=== PATIENT | female | born 1980 | race Caucasian/White ===

== ENCOUNTER 2018-03-28 12:53 | Emergency (ER) | payer SELFPAY ==
[2018-03-28] MEDS ORDERED: Lidocaine 2% Viscous Solution 15 ML Cup PO ONE (13:16)
--- NOTE | 2018-03-28 13:57 | EDM.PDOC ---
ED HPI GENERAL MEDICAL PROBLEM - General Chief Complaint: ENT Problem Stated Complaint: DENTAL COMPLAINT Time Seen by Provider: 03/28/18 13:06 Source of Information: Reports: Patient History Limitations: Reports: No Limitations - History of Present Illness INITIAL COMMENTS - FREE TEXT/NARRATIVE: The patient presents with left lower tooth pain. This started yesterday. She has a cracked tooth with roots exposed. She has no fever or chills. She has no nausea or vomiting. Onset: Gradual Duration: Day(s): (Yesterday) Location: Reports: Face (Left lower jaw) Quality: Reports: Sharp Severity: Severe Improves with: Reports: None Worsens with: Reports: None Associated Symptoms: Reports: No Other Symptoms Treatments [employer]: Reports: Other (see below) Other Treatments [employer]IAN: motrin Left Lower Tooth/Teeth Pain Score (Numeric/FACES): 10 - Related Data Allergies Allergy/AdvReac Type Severity Reaction Status Date / Time No Known Allergies Allergy Verified 03/28/18 13:07 Home Meds: Home Meds Gabapentin [Neurontin] 300 mg PO BID #20 capsule 03/28/18 [Rx] Gabapentin [Neurontin] 300 mg PO DAILY 03/28/18 [History] Hydrocodone/Acetaminophen [Hydrocodon-Acetaminophen 5-325] 1 - 2 each PO Q6HR PRN #20 tablet 03/28/18 [Rx] Penicillin V Potassium 500 mg PO Q6HR #40 tab 03/28/18 [Rx] carBAMazepine [Tegretol] 1 tab PO DAILY 03/28/18 [History] Past Medical History HEENT History: Reports: Other (See Below) Other HEENT History: dental issues Psychiatric History: Reports: Anxiety, Depression, Mood Swings, PTSD Social & Family History - Tobacco Use Smoking Status *Q: Current Every Day Smoker Years of Tobacco use: 20 Packs/Tins Daily: 0.5 - Caffeine Use Caffeine Use: Reports: Coffee, Energy Drinks, Soda, Tea - Recreational Drug Use Recreational Drug Use: No ED ROS ENT - Review of Systems Review Of Systems: See Below Constitutional: Reports: No Symptoms HEENT: Reports: Dental Pain Respiratory: Reports: No Symptoms Cardiovascular: Reports: No Symptoms Endocrine: Reports: No Symptoms GI/Abdominal: Reports: No Symptoms : Reports: No Symptoms Musculoskeletal: Reports: No Symptoms Skin: Reports: No Symptoms ED EXAM, ENT - Physical Exam Exam: See Below Exam Limited By: No Limitations General Appearance: Alert, Mild Distress Ears: Normal External Exam Nose: Normal Inspection Mouth/Throat: Other (Cracked tooth with erythema and edema to the gum line) Head: Atraumatic, Normocephalic Neck: Normal Inspection, Supple, Non-Tender Course - Vital Signs Last Recorded V/S: Last Vital Signs Temp 97.7 F 03/28/18 13:12 Pulse 65 03/28/18 13:12 Resp 20 03/28/18 13:12 BP 120/96 H 03/28/18 13:12 Pulse Ox 98 03/28/18 13:12 - Orders/Labs/Meds Meds: Medications Discontinued Medications Generic Name Dose Route Start Last Admin Trade Name Freq PRN Reason Stop Dose Admin Lidocaine HCl 15 ml 03/28/18 13:16 03/28/18 13:22 Xylocaine 2% Viscous PO 03/28/18 13:17 15 ml ONETIME ONE Administration Departure - Departure Time of Disposition: 13:55 Disposition: Home, Self-Care 01 Condition: Good Clinical Impression: Dental abscess, Pain, dental - Discharge Information *PRESCRIPTION DRUG MONITORING PROGRAM REVIEWED*: No *COPY OF PRESCRIPTION DRUG MONITORING REPORT IN PATIENT ROXANNE: No Prescriptions: Hydrocodone/Acetaminophen [Hydrocodon-Acetaminophen 5-325] 1 - 2 each PO Q6HR PRN #20 tablet PRN Reason: Pain Penicillin V Potassium 500 mg PO Q6HR #40 tab Gabapentin [Neurontin] 300 mg PO BID #20 capsule Referrals: PCP,None [Primary Care Provider] - Additional Instructions: Take the medication as prescribed. Follow up with a dentist in town and get a primary care provider.
== END 2018-03-28 14:05 | disposition home or self-care (01) ==
LOC: JD.ED 12:53
DX: K04.7 Periapical abscess without sinus (principal); F17.210 Nicotine dependence, cigarettes, uncomplicated
CPT/HCPCS: 99283; A9270